=== PATIENT | male | born 1940 | race Caucasian/White ===

== ENCOUNTER → 2021-08-05 | Outpatient (CLI) | payer OTHER ==
[~2021-08-05] VITALS: Ht 172.7 cm; Wt 77.6 kg
[~2021-08-05] MED LIST: CHILDREN'S ASPI81 M1 PO; FLOMAX0.4 MG PO; LIPITOR 20 MG T20 M1 PO; LOPERAMIDE2 MG PO; MELATONIN3 M1 PO; PRESERVISION T1 EACH PO; PROBIOTIC1 EAC3 PO; TROSPIUM CHLORI20 MG PO; VITAMIN D310 MCG PO; [UNRECOGNIZED DRUG - OTHER] PO
--- NOTE | 2021-08-07 13:08 | PATH ---
[facility] [address] [place] [address] PATHOLOGY RPT PROCEDURE Name: STEF HARDY Room #: REG LAITH Chahal#: [id number] Admission: 08/05/21 Date of : 44 Discharge: Report #: [id number] Path Case #: [id number] [facility] Accession Number: [id number] . 01 Material submitted: . PART A: gastrointestinal site - GASTRIC BIOPSIES PART B: esophagus - RANDOM ESOPHAGEAL BIOPSIES R/O EOSINOPHILIC ESOPHAGITIS . 01 Clinical history: . ESOPHAGOGASTRODUODENOSCOPY DYSPHAGIA GASTRITIS . 02 Diagnosis: A. Gastric mucosa, gastric, biopsy: - Mild inactive chronic gastritis. - H. pylori immunohistochemical stain is negative. . B. Squamous epithelium, random esophageal, biopsy: - Unremarkable squamous epithelium. - There is no evidence of eosinophilic esophagitis. (SCA/db; 08/07/2021) LBQ 08/07/2021 1101 Local . 02 Electronically signed: . Efrem Murphy DO, Pathologist NPI- [id number] . 01 Gross description: . A. The specimen is received in formalin, labeled "Stef Hardy, gastric biopsies". Received are 3 segments of pale de oliveira tissue ranging in size from 0.3-0.4 cm in maximum dimension. The specimen is entirely submitted in cassette A1. . B. The specimen is received in formalin, labeled "Stef Hardy, random esophageal biopsies". Received are 4 segments of pale de oliveira tissue ranging in size from 0.3-0.4 cm in maximum dimensions. The specimen is entirely submitted in cassette B1. ([facility]; 08/06/2021) NRI/NRI 08/06/2021 1456 Local . 02 Pathologist provided ICD-10: K29.50 . 02 CPT . 760024, 298238, [id number] Specimen Comment: A courtesy copy of this report has been sent to [phone], [place] [address] PATHOLOGY RPT PROCEDURE Name: STEF HARDY Room #: REG [facility].#: [id number] Admission: 08/05/21 Date of : 44 Discharge: Report #: [id number] Path Case #: [id number] Specimen Comment: [id number] Specimen Comment: Report sent to / DR LEYVA Performed at: [address], [place], [place] [id number] MD Saravanan Lazo MD Phone: [phone] Performed at: [address] [id number] MD Jomar Villarreal MD Phone: [phone]
== END | disposition home or self-care (01) ==
LOC: GI 07:01
PROVIDERS: ATTEND Internal Medicine Gastroenterology
DX: R13.10 Dysphagia, unspecified (principal); K29.50 Unspecified chronic gastritis without bleeding; N40.0 Benign prostatic hyperplasia without lower urinary tract symptoms; Z98.890 Other specified postprocedural states; Z79.899 Other long term (current) drug therapy; Z85.46 Personal history of malignant neoplasm of prostate; Z87.891 Personal history of nicotine dependence; Z20.822 Contact with and (suspected) exposure to COVID-19; Z95.1 Presence of aortocoronary bypass graft; Z79.01 Long term (current) use of anticoagulants; Z95.2 Presence of prosthetic heart valve; Z88.8 Allergy status to other drugs, medicaments and biological substances
CPT/HCPCS: 62110; 62900